=== PATIENT | female | born 1980 | race Caucasian/White ===

== ENCOUNTER 2024-04-07 06:51 | Day surgery (SDC) | payer OTHER ==
[2024-03-30 11:18] VITALS: BP 123/81
[~2024-04-07] VITALS: Ht 170.2 cm; Wt 113.6 kg
[~2024-04-07 06:51] MED LIST: LACTATED RINGER'S 1,000 ML IV SCH; METAMUCIL0.4 GM PO
[2024-04-07] MEDS ORDERED: CEFAZOLIN SODIUM 3 GM/30 ML SYR IV SCH (07:00)
[2024-04-07] MEDS ORDERED: IBLOOD GLUCOSE TEST STRIP 1 EA TEST VI PRN ×2 (07:00→12:15)
[2024-04-07] MEDS ORDERED: LIDOCAINE HCL 1% 5 ML SDV INJ ONE (07:00)
[2024-04-07 07:11] VITALS: BP 132/82
[2024-04-07] MEDS ORDERED: HYDROmorphone HCL 2 MG/ML VIAL ONE (09:43)
[2024-04-07] MEDS ORDERED: fentaNYL citrate 100 MCG/2 ML VIAL ONE (09:43)
[2024-04-07] MEDS ORDERED: KETAMINE in NS 50 MG/5 ML SYR ONE (09:44)
[2024-04-07] MEDS ORDERED: SCOPOLAMINE 1 MG/3 DAYS PATCH 1 EACH TDSY ONE (09:44)
[2024-04-07] MEDS ORDERED: dexmedeTOMIDine HCl 200 MCG/2 ML VIAL ONE (09:44)
[2024-04-07] MEDS ORDERED: propofoL 200 MG/20 ML VIAL ONE (09:44)
[2024-04-07] MEDS ORDERED: ROCURONIUM BROMIDE 50 MG/5 ML SYR ONE ×2 (09:44→10:35)
[2024-04-07] MEDS ORDERED: MAGNESIUM SULFATE 1 GM/2 ML VIAL ONE ×2 (09:44→10:59)
[2024-04-07] MEDS ORDERED: DEXAMETHASONE SOD PHOS 4 MG/ML VIAL ONE (09:44)
[2024-04-07] MEDS ORDERED: ACETAMINOPHEN 1,000 MG/100 ML VIAL ONE (09:44)
[2024-04-07] MEDS ORDERED: LIDOCAINE HCL 2% 5 ML SDV ONE ×2 (09:44→10:59)
[2024-04-07] MEDS ORDERED: ondansetron HCL 4 MG/2 ML VIAL ONE (09:44)
[2024-04-07] MEDS ORDERED: SODIUM CHLORIDE 0.9% 40 ML IV ONE ×2 (09:44→10:59)
[2024-04-07] MEDS ORDERED: KETOROLAC TROMETHAMINE 30 MG/ML VIAL ONE (09:44)
[2024-04-07] MEDS ORDERED: HEParin SOD (PORCINE) 5,000 UNIT/0.5 ML SYR ONE (10:02)
[2024-04-07] MEDS ORDERED: droPERidol 5 MG/2 ML VIAL ONE (10:11)
[2024-04-07] MEDS ORDERED: ePHEDrine sulfate 50 MG/ML AMP ONE (11:00)
[2024-04-07] MEDS ORDERED: SUGAMMADEX SODIUM 200 MG/2 ML ML ONE (11:45)
[2024-04-07] MEDS ORDERED: MORPHINE SULFATE 10 MG/ML VIAL IV PRN (12:00)
[2024-04-07] MEDS ORDERED: SIMETHICONE 125 MG TABLET CHEWABLE PO PRN (12:00)
[2024-04-07] MEDS ORDERED: NALOXONE HCL 0.4 MG SYR IV PRN ×2 (12:00→12:15)
[2024-04-07] MEDS ORDERED: MAGNESIUM HYDROXIDE/AL HYDROX 30 ML CUP PO PRN (12:00)
[2024-04-07] MEDS ORDERED: ondansetron HCL 4 MG/2 ML VIAL IV PRN ×2 (12:00→12:15)
[2024-04-07] MEDS ORDERED: OXYCODONE/APAP 5/325 TAB PO PRN (12:00)
[2024-04-07] MEDS ORDERED: FAMOTIDINE 20 MG TAB PO PRN (12:00)
[2024-04-07] MEDS ORDERED: METOCLOPRAMIDE HCL 10 MG/2 ML SDV IV PRN (12:00)
[2024-04-07] MEDS ORDERED: fentaNYL citrate 50 MCG/ML SDV IV PRN (12:15)
[2024-04-07] MEDS ORDERED: SIMETHICONE 125 MG TABLET CHEWABLE PO SCH (13:00)
[2024-04-07] MEDS ORDERED: diphenhydrAMINE HCL 50 MG/ML VIAL IV PRN (13:15)
[2024-04-07 14:30] VITALS: BP 138/75
[2024-04-07 15:29] VITALS: BP 131/80
[2024-04-07 16:29] VITALS: BP 131/80
--- NOTE | 2024-05-15 10:21 | OR ---
[address] [address] Signed DATE OF OPERATION: 04/07/2024 SURGEON: Yony Link DO PREOPERATIVE DIAGNOSES: 1. Abnormal uterine bleeding. 2. Fibroid uterus. 3. Dysmenorrhea. 4. Obesity. POSTOPERATIVE DIAGNOSES: 1. Abnormal uterine bleeding. 2. Fibroid uterus. 3. Dysmenorrhea. 4. Obesity. 5. Endometriosis of the pelvic peritoneum. 6. Pelvic adhesions. PROCEDURES PERFORMED: 1. Total laparoscopic hysterectomy. 2. Bilateral salpingectomy. 3. Cystoscopy. 4. Lysis of adhesions. 5. Excision of endometriosis. HYDROTEL OPERATOR: Juanita Perea M.D. ANESTHESIA: General. COMPLICATIONS: None. SPECIMENS: Uterus, cervix, bilateral fallopian tubes, and endometrial implant. ESTIMATED BLOOD LOSS: 50 mL. Electronically Signed By: YONY LINK DO (JD) 05/15/24 1021 PATIENT NAME: COURTNEY JOHNSTON OPERATIVE REPORT DATE OF : 80 REPORT #: [id number] PHYSICIAN: YONY LINK DO (JD) PCP: YONY LINK DO (JD) REPORT IS CONFIDENTIAL AND NOT TO BE RELEASED WITHOUT AUTHORIZATION [facility] [address] [place] [id number] Signed DRAINS: Prince to gravity. FINDINGS: Normal external genitalia with normal clitoris, urethral meatus, bilateral Renfrow's, and Bartholin's glands. Normal vagina and cervix. On laparoscopy, the left ovary adhesed to the lateral sidewall with endometriosis noted on the pelvic sidewall behind this. The patient also with dense bladder adhesions. Otherwise, normal uterus, tubes, and ovaries. Normal bladder with bilateral ureteral jets. Excellent apical support at the end of the procedure. INDICATIONS FOR THE PROCEDURE: Mrs. Johnston is a very pleasant 43-year-old, G3, P2 female with increasing abnormal uterine bleeding, fibroids, and endometrial polyp. She had a large submucosal fibroid that was unable to be resected completely and decision was made to proceed with definitive treatment with total laparoscopic hysterectomy. Risks, benefits, and alternatives were discussed in detail with the patient. The patient understands and wished to proceed with the procedure. DESCRIPTION OF PROCEDURE: The patient was taken to the OR. Time-out was performed to confirm correct patient and correct procedure. General anesthesia was adequately established. The patient was prepped and draped in dorsal lithotomy position with her feet in Yellofin stirrups. ICPs were on and running. The patient received Ancef 3 g IV per protocol as well as heparin 5000 units. Prince catheter was inserted. Weighted speculum was placed in the vagina and the anterior lip of the cervix was grasped with an Allis clamp. The cervix was gently dilated using Hegar dilators. A VCare uterine manipulator was placed without difficulty. Surgeon's gloves were changed, attention was turned to the abdomen. Just inferior to the umbilicus, the skin was infiltrated with 0.25% Marcaine with epinephrine and a curvilinear incision approximately 3-4 cm was made. Incision was carried down to the fascia, which was grasped with hemostats, elevated, and entered sharply. Stay suture of 0-Vicryl was placed in the superior and inferior edge of the fascial incision and the peritoneum was entered bluntly. Marcelina operative port was placed without difficulty and pneumoperitoneum was established. A 5 mm licensed sales assistant port was placed in the left lower quadrant under direct visualization. An 8 mm expanding port was placed in the right lower quadrant under direct visualization. Survey of the abdomen and pelvis was performed demonstrating apparent normal upper quadrants, large multi-fibroid uterus, dense adhesions of the bladder to the lower uterine segment as well as the left ovary to the pelvic sidewall. The left fallopian tube was grasped, elevated, and divided along the mesosalpinx using a LigaSure device. The left ovary was again noted to be densely adherent to the pelvic sidewall. This was freed up and an endometrial implant was noted in the pelvic sidewall consistent with endometriosis. This was Electronically Signed By: YONY MISHRA) DO NOEMÍ 05/15/24 1021 PATIENT NAME: COURTNEY JOHNSTON OPERATIVE REPORT DATE OF : 80 REPORT #: [id number] PHYSICIAN: YONY LINK) PCP: YONY LINK) REPORT IS CONFIDENTIAL AND NOT TO BE RELEASED WITHOUT AUTHORIZATION [address] [address] Signed grasped, elevated, and dissected and sent to Pathology for further evaluation with excellent hemostasis. Attention was then turned to the left round ligament. The round ligament was fulgurated, divided and the leaves of the broad ligament were divided from the midportion of the round ligament to the uterosacral ligament posteriorly and to the angle of the vaginal cup anteriorly. Dense scarring of the bladder to the lower uterine segment was identified and this was very carefully and meticulously taken down without difficulty. The left uterine vessels were fulgurated and divided with excellent hemostasis. The process was repeated on the right with division of the fallopian tube along the mesosalpinx, fulguration, division of the utero-ovarian ligament. The round ligament and then the leaves of the broad ligament were also divided on the right. The bladder was able to be easily mobilized well below the cervical cup. The right uterine vessels were identified, fulgurated, and divided with excellent hemostasis. Colpotomy was then performed using Sonicision device and the uterus and cervix were delivered through the vagina without difficulty. Pneumoperitoneum was re-established by placing a wet lap sponge inside of a glove and placing this inside the vagina. The colpotomy was evaluated and made hemostatic with judicious use of bipolar cautery. The colpotomy was then repaired using V-Loc suture with an Endostitch device with careful attention to incorporate the uterosacral ligaments bilaterally as well as the vaginal epithelium with each bite. Excellent hemostasis and apical support was noted at the end of this procedure. The pelvis was irrigated and found to be hemostatic. Pneumoperitoneum was reduced. Trocars were removed and infraumbilical fascia was reapproximated using 0-Vicryl in a running nonlocked manner. The skin was reapproximated using 3-0 Vicryl Rapide. Attention was then turned to the pelvis. The vaginal packing was removed and the Prince catheter was removed. A 70-degree cystoscope was then placed into the urethral meatus and advanced under direct visualization of the bladder. Normal bladder dome. Bilateral ureteral jets were appreciated. The bladder was drained. Prince catheter was reinserted. The patient was taken to the PACU in good and stable condition. Sponge, needle, and instrument counts correct x2 at the end of the procedure. Dr. Perea was present and participated in all portions of the procedure. DO MARIA DE JESUS James/ASHWINI /[id number] Electronically Signed By: YONY LINK DO (JD) 05/15/24 1021 PATIENT NAME: COURTNEY JOHNSTON OPERATIVE REPORT DATE OF : 80 REPORT #: [id number] PHYSICIAN: YONY LINK DO (JD) PCP: YONY LINK) REPORT IS CONFIDENTIAL AND NOT TO BE RELEASED WITHOUT AUTHORIZATION [address] [address] Signed Copies: ~ Electronically Signed By: YONY LINK DO (JD) 05/15/24 1021 PATIENT NAME: COURTNEY JOHNSTON OPERATIVE REPORT DATE OF : 80 REPORT #: [id number] PHYSICIAN: YONY LINK DO (JD) PCP: YONY LINK (JERRICA) DO REPORT IS CONFIDENTIAL AND NOT TO BE RELEASED WITHOUT AUTHORIZATION
== END 2024-04-07 16:40 | disposition home or self-care (01) ==
LOC: DS 06:51 → OPS 07:30 → EDSTATUS 09:25 → OPS 09:25 → DS 16:40
PROVIDERS: ATTEND Obstetrics & Gynecology
PROC: 0UT94ZZ Resection of Uterus, Percutaneous Endoscopic Approach (ICD-10-PCS; principal; 2024-04-07 09:25)
PROC: 0UT74ZZ Resection of Bilateral Fallopian Tubes, Percutaneous Endoscopic Approach (ICD-10-PCS; 2024-04-07 09:25)
PROC: 0UB94ZZ Excision of Uterus, Percutaneous Endoscopic Approach (ICD-10-PCS; 2024-04-07 09:25)
DX: D25.0 Submucous leiomyoma of uterus (principal); N93.9 Abnormal uterine and vaginal bleeding, unspecified; N94.6 Dysmenorrhea, unspecified; N80.30 Endometriosis of pelvic peritoneum, unspecified; N73.6 Female pelvic peritoneal adhesions (postinfective); E66.9 Obesity, unspecified; Z68.39 Body mass index [BMI] 39.0-39.9, adult; Z88.0 Allergy status to penicillin
CPT/HCPCS: 00840; A9270; J0131; J0690; J1100; J1170; J1200; J1644; J1790; J1885; J2001; J2405; J2704; J3010; J3475; J3490; J7121